=== PATIENT | female | born 1965 | race American Indian/Alaskan Native ===

== ENCOUNTER 2017-12-09 22:58 | Observation (INO) | payer BC ==
[2017-12-09 22:58] VITALS: BMI 36.6
--- NOTE | 2017-12-09 23:55 | ED PDOC ---
Arrival/HPI - General Chief Complaint: Syncope Time Seen by Provider: 12/09/17 23:44 Historian: Patient, Spouse - History of Present Illness Narrative History of Present Illness (Text): 12/09/17 23:49 Antonette Rodriguez is a 52 year old female, whose past medical history includes seizures, who presents to the Emergency department status post syncopal episode tonight. states patient passed out at home, states he found her on the floor unconscious. The patient regained consciousness at home, states she does not recall the incident, and was brought in via EMS. Patient denies any fever, chills, chest pain, shortness of breath, nausea, vomiting, diarrhea, urinary symptoms, back pain, neck pain, or any other complaints. Time/Duration: Prior to Arrival Symptom Onset: Sudden Symptom Course: Improving Activities at Onset: Light Context: Home Past Medical History - Provider Review Nursing Documentation Reviewed: Yes - Endocrine/Metabolic Hx Hypothyroidism: Yes - Psychiatric Hx Depression: No Hx Emotional Abuse: No Hx Physical Abuse: No Hx Substance Use: No - Surgical History Hx Hysterectomy: Yes - Suicidal Assessment Feels Threatened In Home Enviroment: No Family/Social History - Physician Review Nursing Documentation Reviewed: Yes Family/Social History: Unknown Family HX Smoking Status: Never Smoked Hx Alcohol Use: Yes Frequency of alcohol use: Socially Hx Substance Use: No Hx Substance Use Treatment: No Allergies/Home Meds Allergies/Adverse Reactions: Allergies No Known Allergies Allergy (Verified 12/09/17 23:12) Home Medications: Home Meds Medication Instructions Recorded Confirmed Meloxicam [Mobic] 7.5 mg PO DAILY 12/09/17 12/09/17 levETIRAcetam [Keppra] 500 mg PO DAILY 12/09/17 12/09/17 tiZANidine [Zanaflex] 4 mg PO HS 12/09/17 12/09/17 Review of Systems - Physician Review All systems were reviewed & negative as marked: Yes - Review of Systems Constitutional: Normal. absent: Fevers Eyes: Normal ENT: Normal Respiratory: Normal. absent: SOB, Cough Cardiovascular: Syncope. absent: Chest Pain Gastrointestinal: Normal. absent: Abdominal Pain, Nausea, Vomiting Genitourinary Female: Normal. absent: Dysuria, Frequency, Hematuria, Urine Output Changes Musculoskeletal: Normal. absent: Back Pain, Neck Pain Skin: Normal. absent: Rash Neurological: Headache, Dizziness Endocrine: Normal Hemo/Lymphatic: Normal Psychiatric: Normal Physical Exam Vital Signs Reviewed: Yes Vital Signs Temp Pulse Resp BP Pulse Ox 12/10/17 03:00 97.9 F 70 16 169/80 H 100 12/10/17 01:00 97.9 F 70 16 170/80 H 100 12/09/17 23:21 97.9 F 75 18 185/113 H 99 Temperature: Afebrile Blood Pressure: Normal Pulse: Regular Respiratory Rate: Normal Appearance: Positive for: Well-Appearing, Non-Toxic, Comfortable Pain Distress: None Mental Status: Positive for: Alert and Oriented X 3 - Systems Exam Head: Present: Atraumatic, Normocephalic Pupils: Present: PERRL Extroacular Muscles: Present: EOMI Conjunctiva: Present: Normal Mouth: Present: Moist Mucous Membranes Neck: Present: Normal Range of Motion Respiratory/Chest: Present: Clear to Auscultation, Good Air Exchange. No: Respiratory Distress, Accessory Muscle Use Cardiovascular: Present: Regular Rate and Rhythm, Normal S1, S2. No: Murmurs Abdomen: Present: Normal Bowel Sounds. No: Tenderness, Distention, Peritoneal Signs Back: Present: Normal Inspection Upper Extremity: Present: Normal Inspection. No: Cyanosis, Edema Lower Extremity: Present: Normal Inspection. No: Edema Neurological: Present: GCS=15, CN II-XII Intact, Speech Normal Skin: Present: Warm, Dry, Normal Color. No: Rashes Psychiatric: Present: Alert, Oriented x 3, Normal Insight, Normal Concentration Medical Decision Making ED Course and Treatment: 12/10/17 23:49 Impression: 52 year old female presents to the Emergency department s/p syncopal episode. ro intracranial, metaoblic, infectious, cardiac etiology Plan: -- EKG -- CT Head -- Labs -- Urinalysis -- Reassess and disposition Progress Notes: Reviewed EKG, NSR at [address]-segment elevations or depressions, no T-wave inversions, normal intervals. 12/10/17 01:54 Chest X-ray shows: Lungs: There is a diffuse increase in interstitial markings, which is nonspecific. Possible etiologies include interstitial edema and atypical infection. There is hazy opacification of the left lung, and infiltrate cannot be excluded. Pleural space: No pleural effusions. No pneumothorax. Heart: The cardiac silhouette appears enlarged. Mediastinum: Unremarkable. Bones/joints: No visualized acute osseous abnormality. IMPRESSION: 1. The cardiac silhouette appears enlarged. 2. There is a diffuse increase in interstitial markings, which is nonspecific. Possible etiologies include interstitial edema and atypical infection. 3. There is hazy opacification of the left lung, and infiltrate cannot be excluded. 4. Clinical correlation and follow-up radiographs are recommended. CT Head shows: Brain: There are small periventricular foci of hypodensity, suggestive of small vessel ischemic disease. Demyelination is within the differential. The acuity of the white matter disease is indeterminate. The white-singh differentiation is preserved demonstrating no acute territorial type infarct. There are calcifications within the globus pallidus bilaterally, which are likely physiologic. No acute intracranial hemorrhage is seen. Midline shift: There is no midline shift. Ventricles: A cavum septum pellucidum variant is visualized. No ventriculomegaly. Bones/joints: The calvarium demonstrates no evidence for a depressed fracture. Soft tissues: No acute abnormality. Vasculature: There is atherosclerotic calcification of the cavernous internal carotid arteries. Sinuses: Unremarkable as visualized. No acute sinusitis. Mastoid air cells: No mastoid effusion. Orbits: There is bilateral proptosis. IMPRESSION: 1. No acute intracranial hemorrhage or acute territorial type infarct. 2. There are small periventricular foci of hypodensity, suggestive of small vessel ischemic disease. Demyelination is within the differential. 3. Additional CT findings described above. 12/10/17 02:07 mild leukocytosis, cxr shows suspected infiltrate read by radiologist, will cover empirically. Case discussed with Dr. Da Silva, who is aware and agrees with plan. Accepts pt in to his service. Pt admitted to telemetry for syncope, pneumonia, and leukocytosis. Requests mesha Bear kapoor on consult. 12/10/17 05:45 - Lab Interpretations Microbiology Results: Microbiology Results 12/10/17 02:00 Blood Blood Culture - Preliminary NO GROWTH AFTER 24 HOURS Lab Results: 12/10/17 00:40 12/10/17 00:40 Lab Results 12/10/17 02:00: Influenza Typ A,B (EIA) Negative for flu a/b 12/10/17 00:40: Sodium 143, Potassium 3.6, Chloride 102, Carbon Dioxide 30, Anion Gap 14, BUN 11, Creatinine 0.9, Est GFR ( Amer) > 60, Est GFR (Non- Af Amer) > 60, Random Glucose 112 H, Calcium 10.2, Magnesium 2.1, Total Bilirubin 0.5, AST 31, ALT 26, Alkaline Phosphatase 112, Lactate Dehydrogenase 523, Total Creatine Kinase 323 H, CK-MB (CK-2) 2.7, CK-MB (CK-2) % Cancelled, Troponin I 0.06, Total Protein 7.4, Albumin 4.0, Globulin 3.4, Albumin/Globulin Ratio 1.2 12/10/17 00:40: PT 11.6, INR 1.02, APTT 30.2 12/10/17 00:40: WBC 12.9 H, RBC 4.49, Hgb 13.4, Hct 40.6, MCV 90.4, MCH 29.8, MCHC 33.0, RDW 13.6, Plt Count 263, MPV 11.7 H, Gran % 81.4 H, Lymph % (Auto) 12.9 L, [place] % (Auto) 4.1, Eos % (Auto) 1.4 L, Baso % (Auto) 0.2, Gran # 10.45 H , Lymph # (Auto) 1.7, [place] # (Auto) 0.5, Eos # (Auto) 0.2, Baso # (Auto) 0.03 I have reviewed the lab results: Yes - RAD Interpretation Radiology Orders: 12/09/17 23:47 CHEST PORTABLE [RAD] Stat 12/09/17 23:48 HEAD W/O CONTRAST [CT] Stat School Principal: Radiologist - EKG Interpretation Interpreted by ED Physician: Yes Type: 12 lead EKG - Medication Orders Current Medication Orders: Amlodipine Besylate (Norvasc) 2.5 mg PO DAILY [facility] Last Admin: 12/10/17 18:59 Dose: 2.5 mg MAR Blood Pressure Document 12/10/17 18:59 DC (Rec: 12/10/17 18:59 DC [id number]) Blood Pressure Blood Pressure (100/60-150/90) 164/104 Aspirin (Ecotrin) 81 mg PO DAILY [facility] Last Admin: 12/10/17 10:36 Dose: 81 mg Levetiracetam (Keppra) 500 mg PO DAILY [facility] Last Admin: 12/10/17 10:21 Dose: 500 mg Discontinued Medications Levofloxacin/Dextrose (Levaquin 750mg) 750 mg in 150 mls @ 100 mls/hr IVPB STAT STA PRN Reason: Protocol Stop: 12/10/17 03:29 Last Admin: 12/10/17 02:52 Dose: 100 mls/hr eMAR Start Stop Document 12/10/17 02:52 AB (Rec: 12/10/17 02:53 AB [id number]) Intravenous Solution Start Date 12/10/17 Start Time 02:52 End Date 12/10/17 End time 04:22 Total Infusion Time 90 - Scribe Statement The provider has reviewed the documentation as recorded by the Chandni Joyce training under Kiara Cosme All medical record entries made by the Chandni were at my direction and personally dictated by me. I have reviewed the chart and agree that the record accurately reflects my personal performance of the history, physical exam, medical decision making, and the department course for this patient. I have also personally directed, reviewed, and agree with the discharge instructions and disposition. Disposition/Present on Arrival - Present on Arrival Any Indicators Present on Arrival: No History of DVT/PE: No History of Uncontrolled Diabetes: No Urinary Catheter: No History of Decub. Ulcer: No History Surgical Site Infection Following: None - Disposition Have Diagnosis and Disposition been Completed?: Yes Diagnosis: Syncope, Pneumonia Disposition: HOSPITALIZED Disposition Time: 04:00 Patient Problems: Current Active Problems Problem Status Onset Pneumonia Acute Syncope Acute Condition: STABLE
[2017-12-10 01:16] LABS: BASO # 0.03 K/mm3 (0.0-2.0); BASO % 0.2 % (0.0-3.0); EOS # 0.2 (0.0-0.7); EOS % 1.4 % (1.5-5.0); GRAN # 10.45 (1.4-6.5); GRAN % 81.4 % (50.0-68.0); HEMOGLOBIN 13.4 g/dL (12.0-16.0); LYMPH # 1.7 (1.2-3.4); LYMPH % 12.9 % (22.0-35.0); MEAN CELL VOLUME 90.4 fl (80.0-105.0); MEAN CORPUSCULAR HEMOGLOBIN 29.8 pg (25.0-35.0); MEAN PLATELET VOLUME 11.7 fl (7.0-11.0); MONO # 0.5 (0.1-0.6); MONO % 4.1 % (1.0-6.0); RBC 4.49 10^6/uL (3.5-6.1); RED CELL DISTRIBUTION WIDTH 13.6 % (11.5-14.5); WHITE BLOOD COUNT 12.9 10^3/ul (4.5-11.0)
[2017-12-10 01:23] LABS: ALB/GLOB RATIO 1.2 (1.1-1.8); ALT/SGPT 26 U/L (7-56); AST/SGOT 31 U/L (14-36); BLOOD UREA NITROGEN 11 mg/dL (7-21); CALCIUM 10.2 mg/dL (8.4-10.5); GFR AFRICAN-AMERICAN > 60; GFR NON-AFRICAN AMERICAN > 60; MAGNESIUM 2.1 mg/dL (1.7-2.2)
[2017-12-10 01:29] LABS: PROTHROMBIN TIME 11.6 SECONDS (9.4-12.5)
[2017-12-10 01:30] LABS: INR 1.02 (0.93-1.08); PARTIAL THROMBOPLASTIN TIME 30.2 Seconds (25.1-36.5)
[2017-12-10 01:33] LABS: TROPONIN I 0.06 ng/mL
[2017-12-10 01:45] LABS: CK-MB 2.7 ng/mL (0.0-3.6)
--- NOTE | 2017-12-10 01:52 | CT ---
EXAM: CT Head Without Intravenous Contrast EXAM DATE/TIME: 12/09/2017 11:48 PM CLINICAL HISTORY: The patient age is 52 years old and is female; Signs and symptoms; Syncope and collapse Facility exam id and description: Ct heads head w/o contrast TECHNIQUE: Axial computed tomography images of the head/brain without intravenous contrast. All CT scans at this facility use one or more dose reduction techniques, viz.: automated exposure control; ma/kV adjustment per patient size (including targeted exams where dose is matched to indication; i.e. head); or iterative reconstruction technique. Coronal and sagittal reformatted images were created and reviewed. COMPARISON: No relevant prior studies available. FINDINGS: Brain: There are small periventricular foci of hypodensity, suggestive of small vessel ischemic disease. Demyelination is within the differential. The acuity of the white matter disease is indeterminate. The white-singh differentiation is preserved demonstrating no acute territorial type infarct. There are calcifications within the globus pallidus bilaterally, which are likely physiologic. No acute intracranial hemorrhage is seen. Midline shift: There is no midline shift. Ventricles: A cavum septum pellucidum variant is visualized. No ventriculomegaly. Bones/joints: The calvarium demonstrates no evidence for a depressed fracture. Soft tissues: No acute abnormality. Vasculature: There is atherosclerotic calcification of the cavernous internal carotid arteries. Sinuses: Unremarkable as visualized. No acute sinusitis. Mastoid air cells: No mastoid effusion. Orbits: There is bilateral proptosis. IMPRESSION: 1. No acute intracranial hemorrhage or acute territorial type infarct. 2. There are small periventricular foci of hypodensity, suggestive of small vessel ischemic disease. Demyelination is within the differential. 3. Additional CT findings described above.
--- NOTE | 2017-12-10 01:57 | RAD ---
EXAM: XR Chest, 1 View EXAM DATE/TIME: 12/09/2017 11:47 PM CLINICAL HISTORY: The patient age is 52 years old and is female; Signs and symptoms; Shortness of breath; Additional info: Syncope Facility exam id and description: Rad chest p chest portable TECHNIQUE: Frontal view of the chest. COMPARISON: No relevant prior studies available. FINDINGS: Lungs: There is a diffuse increase in interstitial markings, which is nonspecific. Possible etiologies include interstitial edema and atypical infection. There is hazy opacification of the left lung, and infiltrate cannot be excluded. Pleural space: No pleural effusions. No pneumothorax. Heart: The cardiac silhouette appears enlarged. Mediastinum: Unremarkable. Bones/joints: No visualized acute osseous abnormality. IMPRESSION: 1. The cardiac silhouette appears enlarged. 2. There is a diffuse increase in interstitial markings, which is nonspecific. Possible etiologies include interstitial edema and atypical infection. 3. There is hazy opacification of the left lung, and infiltrate cannot be excluded. 4. Clinical correlation and follow-up radiographs are recommended.
[2017-12-10] MEDS ORDERED: levoFLOXacin 750 mg in D5W 750 MG/150 ML BAG IVPB STA (02:00)
--- NOTE | 2017-12-10 09:00 | CP.PCM.CON ---
<Theresa Strickland - Last Filed: 12/10/17 14:39> History of Present Illness - History of Present Illness History of Present Illness: Consult: Syncope vs seizure Ms Antonette Rodriguez, 52 F, with PMHx seizure on Keprra 500 daily, was brought into the Emergency department status post loss of consciousness last night. Pt dined out at a restaurant early the night. Later, pt was folding clothes at home. Pt's heard a thud, and found pt faced down on the floor, with foam in her mouth and on her clothes. noticed that pt was breathing heavily, without any twitching or shaking. noticed that pt was confused when she became more awake. In 15-20 minutes, EMS came and pt is able to provide her name correctly. Pt states she does not recall the incident. ROS - (+) pt slept only 2-4 hours everynight. Pt was awaken when woke up at 4am and hard to fall back asleep Denies recent sickness, change of medication, skipped medication. Denies any fever, chills, chest pain, shortness of breath, nausea, vomiting, diarrhea, urinary symptoms, back pain, neck pain, or any other complaints. In ED, BP 185/113. WBC 12.9. CK [address]: chronic small periventrical foci of hypodensity due to small vessel ischemic disease. No acute territorial type infarct. Calcification of globus pallidus b/1. (+) b/l proptosis of eye orbits PMH: Seizure. Dx 2016 Hyperthyroidism PSH: FH: Cancer SH: Never smoke. Socally drink alcohol. no drugs. Family/Relative deaths every year in the past 3-4 years. All: NKDA Med: Mobid 7.5 daily, Tizanidine 4 HS ? Keppra 500 daily Outpt neurologist: Dr Charis Stokes Past Patient History - Past Social History Smoking Status: Never Smoked - NEUROLOGICAL Hx Seizures: Yes - ENDOCRINE/METABOLIC Hx Hypothyroidism: Yes - MUSCULOSKELETAL/RHEUMATOLOGICAL Hx Falls: Yes (Syncopal episode 12/09/17) - PSYCHIATRIC Hx Depression: No Hx Emotional Abuse: No Hx Physical Abuse: No - SURGICAL HISTORY Hx Hysterectomy: Yes Meds Allergies/Adverse Reactions: Allergies Allergy/AdvReac Type Severity Reaction Status Date / Time No Known Allergies Allergy Verified 12/09/17 23:12 - Medications Medications: Current Medications Levetiracetam (Keppra) 500 mg PO DAILY SADIE Physical Exam - Constitutional Appears: No Acute Distress - Head Exam Head Exam: ATRAUMATIC, NORMAL INSPECTION, NORMOCEPHALIC - Eye Exam Eye Exam: EOMI, Normal appearance, PERRL. absent: Scleral icterus Pupil Exam: NORMAL ACCOMODATION - ENT Exam ENT Exam: Mucous Membranes Moist - Neck Exam Additional comments: supple - Respiratory Exam Respiratory Exam: Clear to Auscultation Bilateral, NORMAL BREATHING PATTERN - Cardiovascular Exam Cardiovascular Exam: REGULAR RHYTHM - GI/Abdominal Exam GI & Abdominal Exam: Normal Bowel Sounds, Soft. absent: Tenderness - Neurological Exam Neurological exam: Alert, CN II-XII Intact, Oriented x3 Additional comments: speech: no aphasia motor: move all extremities equally sensory: intact coordination: intact, no overshoot rapid-alternating movement: intact Results - Vital Signs Recent Vital Signs: Last Vital Signs Temp 97.9 F 12/10/17 06:00 Pulse 74 12/10/17 06:00 Resp 19 12/10/17 06:00 BP 141/74 12/10/17 06:00 Pulse Ox 98 12/10/17 06:00 - Labs Result Diagrams: 12/10/17 00:40 12/10/17 00:40 Assessment & Plan - Assessment and Plan (Free Text) Plan: Ms Antonette Rodriguez, 52 AA F, with PMHx seizure on Keprra 500 daily, was brought into the Emergency department after found loss of consciousness at home. Pt dined out at a restaurant early the night. As home, pt's heard a thud, and found pt faced down on the floor, with foam in her mouth and on her clothes. Pt states she does not recall the incident. ROS is significant for sleep deprivation. Denies recent sickness, change of medication, skipped medication. CK is elevated at 323. Syncope likely vasovagal secondary to sleep deprivation, mildly dehydration, and hypertensive episode R/O seizure - EEG, - Orthostatic VS - Carotid doppler - MRI - ASA 81 to promote blood flow to brain - If EEG is normal, pt is neurologically cleared to go home. - Melatonin 10 mg HS - Educated about sleep hygiene Head CT: chronic small periventrical foci of hypodensity due to small vessel ischemic disease. No acute territorial type infarct. Calcification of globus pallidus b/1. (+) b/l proptosis of eye orbits s/r/d/w Dr. Stokes <Tucker Stokes - Last Filed: 12/10/17 16:15> Meds - Medications Medications: Current Medications Aspirin (Ecotrin) 81 mg PO DAILY [facility]IE Levetiracetam (Keppra) 500 mg PO DAILY [facility] Last Admin: 12/10/17 10:21 Dose: 500 mg Results - Vital Signs Recent Vital Signs: Last Vital Signs Temp 97.9 F 12/10/17 06:00 Pulse 74 12/10/17 06:00 Resp 19 12/10/17 06:00 BP 141/74 12/10/17 06:00 Pulse Ox 98 12/10/17 06:00 - Labs Result Diagrams: 12/10/17 00:40 12/10/17 00:40
--- NOTE | 2017-12-10 09:39 | RAD ---
HISTORY: follow up COMPARISON: 12/10/2017 TECHNIQUE: Chest PA and lateral FINDINGS: LUNGS: No active pulmonary disease. PLEURA: No significant pleural effusion identified. No pneumothorax apparent. CARDIOVASCULAR: Normal. OSSEOUS STRUCTURES: No significant abnormalities. VISUALIZED UPPER ABDOMEN: Normal. OTHER FINDINGS: None. IMPRESSION: No active disease.
--- NOTE | 2017-12-10 10:56 | CON ---
DATE: 12/10/2017 PULMONARY CONSULTATION REASON FOR CONSULTATION: Possible pneumonia. REFERRING PHYSICIAN: Ángel Da Silva DO History is obtained via extensive discussion with the night nurse. I have also reviewed the chart at length, and discussed the case with the patient at length. HISTORY OF PRESENT ILLNESS: The patient is a 52-year-old female, with past medical history significant for seizure disorder, hypertension, who presents to [facility] after a syncopal episode at home. Again, I did discuss the case with the patient at length. The patient stated that she was doing some housework in her living room. The next thing she remembers is being found on the floor. Apparently, the found the patient and called emergency medical services. The patient was then transported to [facility] for additional evaluation and treatment. Again, I did discuss the case with the night nurse and the patient at length. There is no history of shortness of breath at rest, dyspnea on exertion, cough, or sputum production. There is no history of chest pain, coughing up of blood, or chest pain - made worse with deep respirations. There is no history of temperatures, chills or infectious exposure. There is no history of night sweats, weight loss or appetite change prior to the above events. No history of calf pains. No history of diaphoresis. No history of recent travel. REVIEW OF SYSTEMS: No history of nausea, vomiting or diarrhea. No acute urinary symptoms. No new musculoskeletal complaints. Rest of the review of systems is negative. ALLERGIES: NO KNOWN ALLERGIES. SOCIAL HISTORY: Negative tobacco and negative alcohol. FAMILY HISTORY: No inheritable diseases. HOME MEDICATIONS: Include Mobic, Zanaflex and Keppra. PHYSICAL EXAMINATION GENERAL: The patient is awake and alert, comfortable. She is not short of breath at rest. VITAL SIGNS: Temperature is 97.9, pulse is 70, respirations 16, blood pressure 169/80. Oxygen saturation on room air is 100%. HEENT: Normocephalic, atraumatic. No JVD. CARDIOVASCULAR: Positive S1, S2. No S3 gallop. LUNGS: Clear bilaterally. EXTREMITIES: No clubbing, cyanosis or edema. Calves are nontender to palpation. GI: Abdomen is soft, nontender and nondistended. Bowel sounds are positive. SKIN: No acute rash. NEUROLOGIC: Limited at the present time. PERTINENT LABORATORY DATA: Chest x-ray was done late last night and reviewed. It is a poor semi-erect portable film. There appears to be mild haziness in both lung luis, but this may be technical in nature. CBC: White count 12.9, hemoglobin 13.4, hematocrit 40.6, platelets of 263,000. Complete metabolic profile: Glucose 112, creatinine kinase 323. Rest of the metabolic profiles within normal limits. IMPRESSION: 1. Syncope. 2. Seizure disorder. 3. Mild leukocytosis. 4. Rule out aspiration. 5. Hypertension. PLAN: Again, I did discuss the case with the patient and night nurse at length. Apparently, the patient was found by her - after a syncopal episode at home. The last thing the patient remembers is doing some housework in her living room. After the found the patient, he quickly called emergency medical services,and the patient was transported to [facility] for additional evaluation. Consultation with Dr. Stokes (Neurology) has been ordered. At this point in time, there are no pulmonary symptoms offered by the patient or nurse. I did review the chest x-ray as above. The chest x-ray is a poor semi-erect portable film. It does show some haziness in both lung luis, but this may be technical in nature. I will order a repeat chest x-ray - PA and lateral - for closer evaluation. On physical exam, the patient's lungs are clear. Oxygen saturation on room air is 100%. I have also reviewed the laboratory data. There is a mild leukocytosis noted. This leukocytosis may very well be due to the seizure. Cardiology evaluation with Dr. Santos has also been ordered. The patient appears clinically, much improved this morning. Additional pulmonary intervention will be based on the above results, as well as the clinical status of the patient. I will discuss the above with Dr. Da Silva. Thank you very much for this pulmonary consultation. Guzman Booth MD JOSE ANGEL
[2017-12-10] MEDS ORDERED: Gadodiamide 287 MG/ML VIAL (15ML) IV ONE (15:34)
--- NOTE | 2017-12-10 16:10 | CARD ---
APPROVED REPORT EKG Measurement Heart [id number] <Conclusion> Normal sinus rhythm Possible Left atrial enlargement Septal infarct, age undetermined Abnormal ECG
--- NOTE | 2017-12-10 17:25 | HP ---
HISTORY OF PRESENT ILLNESS: I saw her in the hospital bed. She comes in with the 's history of stating that she passed out at home, was found on the floor unconscious. She regained consciousness at home. Does not recall anything. She was brought in by EMS to the emergency room. She tells me that she stopped her seizure medication a few days ago, but she does not think she has seizures anymore and it is very possible she had a seizure. She is not short of breath. No chest pain. No chills, nausea, vomiting, diarrhea. She is comfortable in bed. She is a 52-year-old female, who was found by the at home passed out and unconscious and called 911. She has a history of seizures, hypothyroidism. She had a hysterectomy. FAMILY HISTORY: Unknown family history. SOCIAL HISTORY: She never smoked. She drinks alcohol socially. No substance abuse. ALLERGIES: NO KNOWN DRUG ALLERGIES. MEDICATIONS: She is on Mobic, Keppra, Zanaflex. I have medicine for hypothyroidism. I will check a TSH. REVIEW OF SYSTEMS: At this time, she does not recall the incident. No acute headache or vision changes or hearing changes. No sore throat. No neck pain. No chest pain or palpitations. NO shortness of breath or cough. No nausea, vomiting, constipation, diarrhea. No problems urinating. No back pain or neck pain or arm pain. There is a little bit of a headache, a little bit dizzy. No sweating or anxiety. PHYSICAL EXAMINATION: VITAL SIGNS: 97.9 temp, 70 pulse, 16 respiratory rate, 170/80 blood pressure, the blood pressure is a little bit high and 100% O2 sat on room air. She did not give me any history of hypertensive issues and the blood pressure was 185/113 when she first came in. HEENT: Head is atraumatic, normocephalic. She is well appearing, nontoxic, comfortable right now very upset that she had a seizure possibly or passed out when she was off the medicine for only a couple of days. Alert and oriented x3. Extraocular muscles are intact. Pupils equal, reactive to light and accommodation. Throat is moist. NECK: Supple. HEART: Regular rate. Normal S1, S2. LUNGS: Clear to auscultation bilaterally. No wheezes. No rhonchi. No rales. ABDOMEN: Soft, nontender. Positive bowel sounds. No guarding, no rebound. No CVA tenderness. EXTREMITIES: Have no edema. NEUROLOGIC: GCS is 15. Cranial nerves II through XII grossly intact. Speech is normal. Tongue is midline. SKIN: Warm and dry. No apparent rashes or ulcers. Alert and oriented x3. LYMPH NODES: Thyroid midline. No palpable appreciable lymphadenopathy. LABORATORY DATA: She had a bunch of tests done in the ER. The flu is negative. 143 sodium, potassium 3.6, BUN 11, creatinine 0.9, GFR is greater than 60, sugar is 112, calcium is 10.2, magnesium 2.1, total bili is 0.5, AST is 31, ALT is 26, alk phos 112, lactate dehydrogenase is 523. Troponin I is indeterminate 0.06. Total protein 7.4, albumin is 4, globulin 3.4. INR is 1.03. The white count was a little bit elevated at 12.9, may be that was from stress, 13.4 hemoglobin, 40.6 hematocrit and 263 platelets. She did have a head CT and a chest x-ray. Head CT with no intracranial hemorrhage or acute infarct and the chest x-ray showed cardiac silhouette appears large. There is diffuse increased interstitial markings, nonspecific. Hazy opacification of the left lung and infiltrate cannot be excluded. IMPRESSION: I discussed with the lung doctors, repeating a chest x-ray, a better film to see if she might have pneumonia or not. She is here for seizure. We will Neurology involved. Her brother blood pressure is a little bit borderline and the troponin is indeterminate. I will get Cardiology and for the lung issue from the chest x-ray, I will get Pulmonary. She will be here. Hopefully, I will put her back on the Keppra and she will do well. She is here for unwitnessed unresponsiveness, possible seizure, possible pneumonia, syncope and hypertension. Ángel Da Silva DO
[2017-12-10 17:51] VITALS: RESP 20
--- NOTE | 2017-12-10 19:07 | MRI ---
PROCEDURE: MRI BRAIN WITH AND WITHOUT CONTRAST HISTORY: syncope COMPARISON: None. TECHNIQUE: Multiplanar, multisequence MR images of the brain were obtained with and without intravenous contrast enhancement. 15 cc of Omniscan was injected intravenously. FINDINGS: HEMORRHAGE: None DWI: No evidence of an acute or early subacute infarction. BRAIN PARENCHYMA: No mass,mass effect or edema. The sella turcica is dilated. Partial empty sella is noted. No evidence of pituitary or suprasellar mass lesion. No atrophy or chronic microvascular ischemic changes. ENHANCEMENT: No abnormal intracranial enhancement. VENTRICLES: Unremarkable. No hydrocephalus. CRANIUM: Unremarkable. ORBITS: Grossly unremarkable. PARANASAL SINUSES/MASTOIDS: Clear VASCULAR SYSTEM: Skull base flow voids intact. OTHER FINDINGS: None . IMPRESSION: No evidence of acute infarction intracranial hemorrhage mass lesion mass effect or midline shift. Partial empty sella.
--- NOTE | 2017-12-10 19:08 | US ---
PROCEDURE: Bilateral carotid artery duplex ultrasound HISTORY: Carotid stenosis syncope. PHYSICIAN(S): Cash Johnson MD. TECHNIQUE: Duplex sonography and color-flow Doppler were used to evaluate the carotid bifurcations and limited segments of the vertebral arteries bilaterally. The exam is somewhat limited by tortuous vessels. FINDINGS: There is mild smooth heterogeneous plaque noted at the carotid bifurcations bilaterally. The peak systolic velocity in the proximal right internal carotid artery is 121 cm/sec. This corresponds to a 40-59 percent proximal right ICA stenosis. This may be due to vessel tortuosity Normal systolic velocities are noted in the proximal right external carotid artery. There is antegrade flow in the right vertebral artery. The peak systolic velocity in the proximal left internal carotid artery is 97 cm/sec. This corresponds to a 20 to 39% proximal left ICA stenosis. Normal systolic velocities are noted in the proximal left external carotid artery. There is antegrade flow in the dominant left vertebral artery. IMPRESSION: 1. 40-59 percent proximal right ICA stenosis. 2. 20-39 percent proximal left ICA stenosis. 3. Antegrade flow in both vertebral arteries.
--- NOTE | 2017-12-10 22:55 | CON ---
DATE: 12/10/2017 CARDIOLOGY CONSULTATION HISTORY OF PRESENT ILLNESS: The patient is a 52-year-old woman who presents with a syncopal episode. She apparently had an episode of a possible seizure where she was found unconscious. She does have a history of seizure disorder in which she stopped her medications for the past several weeks. She denies chest pain, denies shortness of breath. PAST MEDICAL HISTORY: Also notable for hypertension. She is also a borderline diabetic. No chest pain. No previous cardiac history is noted. SOCIAL HISTORY: Denies smoking. REVIEW OF SYSTEMS: Fourteen-point review of systems was reviewed in detail. No cardiac symptomatology is noted. PHYSICAL EXAMINATION: VITAL SIGNS: Blood pressure 141/74, heart rates in the 70s. NECK: Negative JVD. LUNGS: Without rales. HEART: Reveals S1, S2. EXTREMITIES: Without edema. LABORATORY DATA: Include a troponin of 0.06, hemoglobin is 13.4, white count is 12.9. EKG shows no acute changes. IMPRESSION: 1. Seizure disorder. 2. Syncope. 3. Hypertension. 4. Borderline diabetes mellitus. 5. Indeterminate troponin elevation. PLAN: Given these findings, we will repeat another troponin. We will obtain an echocardiogram to evaluate LV function. Cash Santos MD
[2017-12-11 01:36] VITALS: O2SAT 96
[2017-12-11 06:37] VITALS: PULSE 94; TEMP 98.1
[2017-12-11 06:55] LABS: TROPONIN I 0.04 ng/mL
[2017-12-11 07:06] LABS: HEMOGLOBIN 12.7 g/dL (12.0-16.0); MEAN CELL VOLUME 92.1 fl (80.0-105.0); MEAN CORPUSCULAR HEMOGLOBIN 29.7 pg (25.0-35.0); MEAN CORPUSCULAR HGB CONC 32.2 g/dl (31.0-37.0); MEAN PLATELET VOLUME 11.3 fl (7.0-11.0); RBC 4.28 10^6/uL (3.5-6.1); RED CELL DISTRIBUTION WIDTH 13.6 % (11.5-14.5); WHITE BLOOD COUNT 8.4 10^3/ul (4.5-11.0)
[2017-12-11 07:09] LABS: ALB/GLOB RATIO 1.1 (1.1-1.8); ALBUMIN 3.4 g/dL (3.0-4.8); ALT/SGPT 30 U/L (7-56); AST/SGOT 25 U/L (14-36); BLOOD UREA NITROGEN 13 mg/dL (7-21); GFR AFRICAN-AMERICAN > 60; GFR NON-AFRICAN AMERICAN 52
--- NOTE | 2017-12-11 08:47 | PN ---
DATE: 12/11/2017 PULMONARY NOTE SUBJECTIVE: The patient appears very comfortable this morning. She is not short of breath at rest. PHYSICAL EXAMINATION VITAL SIGNS: Temperature is 98.1, pulse is 60, respirations 18/20, blood pressure 140/80. Oxygen saturation on room air is 96%. HEENT: Normocephalic, atraumatic. No JVD. CARDIOVASCULAR: Positive S1, S2. No S3 gallop. LUNGS: Clear bilaterally. EXTREMITIES: No clubbing, cyanosis or edema. Calves are nontender to palpation. GI: Abdomen is soft, nontender and nondistended. Bowel sounds are positive. SKIN: No acute rash. NEUROLOGIC: Limited at the present time. PERTINENT LABORATORY DATA: Chest x-ray was repeated yesterday as a PA and lateral exam. There is no active pulmonary disease noted. IMPRESSION: 1. Syncope. 2. Seizure disorder. 3. Mild leukocytosis. 4. Rule out aspiration. 5. Hypertension. PLAN: The patient appears very comfortable this morning. She is not short of breath at rest. She offers no pulmonary complaints. She does state to feeling much better overall. I did review the repeat chest x-ray from yesterday. There is no active pulmonary disease noted. Repeat a.m. labs are pending. Echocardiogram is also pending. I would continue with the cardiology and neurologic evaluations. Inputs are noted. Clinical status of the patient appears significantly improved overall. There is no additional pulmonary intervention which is needed or warranted. Thus, I will follow up on this case again as requested. Thank you very much for allowing me to participate in the care of this patient. I will discuss the above with Dr. Da Silva. Guzman Booth MD JOSE ANGEL
--- NOTE | 2017-12-11 10:09 | CP.PCM.PN ---
<Theresa Strickland - Last Filed: 12/11/17 10:01> Subjective - Date & Time of Evaluation Date of Evaluation: 12/11/17 Time of Evaluation: 10:01 - Subjective Subjective: Neurology PGY-[address] Divya Ingram BREWER, SOB, dizziness, CP, SOB, dysuria, weakness of arms/legs. Objective - Vital Signs/Intake and Output Vital Signs (last 24 hours): Temp Pulse Resp BP Pulse Ox 98.1 F 94 H 20 140/80 96 12/11/17 06:00 12/11/17 06:00 12/11/17 06:00 12/11/17 06:37 12/11/17 06:00 Intake and Output: 12/11/17 12/11/17 06:59 18:59 Intake Total 480 250 Balance 480 250 - Medications Medications: Current Medications Amlodipine Besylate (Norvasc) 2.5 mg PO DAILY [facility] Last Admin: 12/10/17 18:59 Dose: 2.5 mg Aspirin (Ecotrin) 81 mg PO DAILY [facility] Last Admin: 12/10/17 10:36 Dose: 81 mg Levetiracetam (Keppra) 500 mg PO DAILY [facility] Last Admin: 12/10/17 10:21 Dose: 500 mg - Labs Labs: 12/11/17 05:30 12/11/17 05:30 PT 11.6 SECONDS (9.4-12.5) 12/10/17 00:40 INR 1.02 (0.93-1.08) 12/10/17 00:40 APTT 30.2 Seconds (25.1-36.5) 12/10/17 00:40 - Constitutional Appears: No Acute Distress - Head Exam Head Exam: ATRAUMATIC, NORMAL INSPECTION, NORMOCEPHALIC - Eye Exam Eye Exam: EOMI, Normal appearance, PERRL. absent: Scleral icterus Pupil Exam: NORMAL ACCOMODATION - ENT Exam ENT Exam: Mucous Membranes Moist - Neck Exam Additional comments: supple - Respiratory Exam Respiratory Exam: Clear to Ausculation Bilateral, NORMAL BREATHING PATTERN. absent: Rales, Rhonchi, Wheezes - Cardiovascular Exam Cardiovascular Exam: REGULAR RHYTHM, +S1, +S2. absent: Murmur - Neurological Exam Neurological Exam: Alert, Awake, CN II-XII Intact, Oriented x3 Additional comments: speech: no aphasia motor: move all extremities equally sensory: intact coordination: intact, no overshoot rapid-alternating movement: intact Assessment and Plan - Assessment and Plan (Free Text) Plan: Ms Antonette Rodriguez, 52 AA F, with PMHx seizure on Keprra 500 daily, was brought into the Emergency department after found loss of consciousness at home. Pt dined out at a restaurant early the night. As home, pt's heard a thud, and found pt faced down on the floor, with foam in her mouth and on her clothes. Pt states she does not recall the incident. ROS is significant for sleep deprivation. Pt skipped 1 dose of Keppra in AM. Denies recent sickness, change of medication. CK is elevated at 323 likely due to muscle injury from impact of the fall. Telemetry showed sinus bradycardia in 40s and 50s at night. Syncope likely vasovagal secondary to orthostatic hypotension, sleep deprivation , mildly dehydration, and hypertensive episode in the setting of bradycardia R/O seizure - EEG: Normal - Carotid doppler - MRI brain: (+) Sella turcica is dilated, partially empty. No acute - Head CT: chronic small periventrical foci of hypodensity due to small vessel ischemic disease. No acute territorial type infarct. Calcification of globus pallidus b/1. (+) b/l proptosis of eye orbits - ASA 81 to promote blood flow to brain - If EEG is normal, pt is neurologically cleared to go home. - Melatonin 10 mg HS - Educated about sleep hygiene - Pt is neurologically stable to be discharged from hospital - follow up with neurologist outpatient within 1 week - maintain blood glucose 140-180 - maintain SBP 120-130 Patient has orthostatic hypotension - maintain adequate hydration througout the day - compression stockings - avoid sudden movement. Change position slowly Sella turcica dilated and partially empty. No pituitary mass/suprasella mass Questionable Pseudotumor cerebri - obesity, but no waddling gait, no personality changes Doubt Empty sella syndrome - SBP ~140-150 - TSH normal s/r/d/w Dr. Stokes <Tucker Stokes - Last Filed: 12/11/17 10:30> Objective - Vital Signs/Intake and Output Vital Signs (last 24 hours): Temp Pulse Resp BP Pulse Ox 98.1 F 94 H 20 137/80 96 12/11/17 06:00 12/11/17 06:00 12/11/17 06:00 12/11/17 10:16 12/11/17 06:00 Intake and Output: 12/11/17 12/11/17 06:59 18:59 Intake Total 480 250 Balance 480 250 - Medications Medications: Current Medications Amlodipine Besylate (Norvasc) 2.5 mg PO DAILY [facility] Last Admin: 12/11/17 10:16 Dose: 2.5 mg Aspirin (Ecotrin) 81 mg PO DAILY [facility] Last Admin: 12/11/17 10:16 Dose: 81 mg Levetiracetam (Keppra) 500 mg PO DAILY [facility] Last Admin: 12/11/17 10:16 Dose: 500 mg - Labs Labs: 12/11/17 05:30 12/11/17 05:30 PT 11.6 SECONDS (9.4-12.5) 12/10/17 00:40 INR 1.02 (0.93-1.08) 12/10/17 00:40 APTT 30.2 Seconds (25.1-36.5) 12/10/17 00:40 Attending/Attestation - Attestation I have personally seen and examined this patient.: Yes I have fully participated in the care of the patient.: Yes I have reviewed all pertinent clinical information, including history, physical exam and plan: Yes
[2017-12-11 10:17] VITALS: BP 137/80
--- NOTE | 2017-12-11 12:18 | EEG ---
DATE: 12/10/2017 Technical Information: Electrodes were placed according to the 10-20 International electrode system by special procedure technologist. Total of 23 electrodes (21 EEG and 2 EKG) were placed. EEG activity was digitally recorded referentially to P1/P2 or A1/A2 electrodes. Continuous monitoring with EEG was performed using digital analysis for spike detection. The [employer] spike and seizure detection algorithms were used for digital EEG analysis throughout the monitoring period to screen the EEG in real-time and hortencia the data file with pointers to electrographic seizures and interictal discharges. EEG was screened for electrographic seizures and interictal discharges by a technologist. Physician, epileptologist reviewed detections as well as extensive random samples and whole EEG study in detail. Digital EEG Analysis: Was carried out including FFT (Fast Fourier Transform), R2D2 (Rhythmicity Run Detection and Display), Relative Asymmetry Spectrogram, and voltage plot by the [employer]. The Qualitative EEG analysis and the voltage plot mapping were used for detection of foci of paroxysmal and abnormal electrical cortical activity. General Description: Background Rhythm: There is a well-formed, 8-10 Hz posterior dominant rhythm that is reactive, symmetric, and attenuates with eye opening. There was a normal amount of frontal beta noted bilaterally. There is no sleep recorded. Normal sleep patterns were captured, including bilaterally symmetric 12-14 Hz spindles, vertex waves, and K complexes. Activation Procedures: Photic stimulation: There is no driving noted. Hyperventilation: There is slowing noted that is self-remitted. Abnormal Activity: There are no focal epileptiform discharges noted. No clinical or subclinical seizures noted. IMPRESSION: This is a normal awake and sleep EEG. No clinical or subclinical seizures were noted. There is increased theta present throughout the record and this is due to medication effect. Clinical correlation is required. Gianni Dias MD
--- NOTE | 2017-12-11 12:38 | PN ---
DATE: 12/11/2017 CARDIOLOGY FOLLOWUP SUBJECTIVE: The patient is chest pain free. She is without shortness of breath. PHYSICAL EXAMINATION VITAL SIGNS: Blood pressure is 137/80, heart rate is in the 70s. NECK: Negative JVD. LUNGS: Without rales. HEART: S1, S2. EXTREMITIES: Without edema. LABORATORY DATA AND IMAGING: Troponin is down from 0.06 to 0.04. BUN and creatinine unremarkable. Hemoglobin is 12. Echocardiogram reveals good LV function with no significant LV outflow obstruction. IMPRESSION 1. Syncope. 2. Seizure disorder. 3. Hypertension. 4. Borderline diabetes mellitus. 5. Decreasing indeterminate troponin level. Given her cardiac risk factors, I have discussed with the patient and family about ruling out coronary artery disease. Various diagnostic testings have been discussed in detail. They are agreeable to proceed with a stress test, which can be done early next week as an outpatient. Cash Santos MD
--- NOTE | 2017-12-11 17:39 | CARD ---
APPROVED REPORT EXAM: Two-dimensional and M-mode echocardiogram with Doppler and color Doppler. INDICATION Syncope 2D DIMENSIONS Left Atrium (2D)4.2 (1.6-4.0cm)IVSd1.4 (0.7-1.1cm) LVDd4.7 (3.9-5.9cm)PWd1.4 (0.7-1.1cm) LVDs3.5 (2.5-4.0cm)FS (%) 26.0 % LVEF (%)50.9 (>50%) M-Mode DIMENSIONS Aortic Root2.20 (2.2-3.7cm)Aortic Cusp Exc.1.60 (1.5-2.0cm) Aortic Valve AoV Peak Cwwnjosg102.0cm/[place] Peak GR.13mmHg Mitral Valve MV E Uslpubma65.2cm/sMV A Maulhytz16.9cm/sE/A ratio0.7 TDI E/Lateral E'0.0E/Medial E'0.0 Tricuspid Valve TR Peak Rimituzs222nk/sRAP [id number] Peak Gr.29mmHg [id number] LEFT VENTRICLE The left ventricle is normal size. There is borderline concentric left ventricular hypertrophy. The left ventricular function is normal. The left ventricular ejection fraction is within the normal range. There is normal LV segmental wall motion. Transmitral Doppler flow pattern is Grade I-abnormal relaxation pattern. RIGHT VENTRICLE The right ventricle is normal size. There is normal right ventricular wall thickness. The right ventricular systolic function is normal. ATRIA The left atrium is borderline dilated. The right atrium size is normal. AORTIC VALVE The aortic valve is normal in structure. No aortic regurgitation is present. There is no aortic valvular stenosis. MITRAL VALVE The mitral valve is normal in structure. Mitral regurgitation is trace. TRICUSPID VALVE There is mild pulmonary hypertension. GREAT VESSELS The aortic root is normal in size. PERICARDIAL EFFUSION There is no pericardial effusion. <Conclusion> The left ventricle is normal size. There is borderline concentric left ventricular hypertrophy. The left ventricular function is normal. The left ventricular ejection fraction is within the normal range. There is normal LV segmental wall motion. Transmitral Doppler flow pattern is Grade I-abnormal relaxation pattern. There is mild pulmonary hypertension.
--- NOTE | 2017-12-12 10:06 | DS ---
I saw her resting comfortably in bed. She is walking around the halls, the nurse is telling me. She is feeling better. No chest pain or shortness of breath. No dizziness. No headache. She came in with the seizure, history of not taking her medication. She is back on her medications. PHYSICAL EXAMINATION VITAL SIGNS: She has 98.1 temperature, 60 pulse. I put her on amlodipine for high blood pressure, now it is 137/80. Respiratory rate 20, 96% O2 saturation on room air. HEAD: Atraumatic and normocephalic. HEART: Regular rate. LUNGS: Clear to auscultation. ABDOMEN: Soft. EXTREMITIES: Have no edema. NEUROLOGIC: She is smiling. She is eating. She is walking around. She is pleasant. LABORATORY DATA: She has an 8.4 white count, 12.7 hemoglobin, 39.4 hematocrit, 241,000 platelets. She has 144 sodium, potassium 3.6, BUN 13, creatinine 1.1, GFR is 52, sugar is 90, calcium is 10, total bilirubin is 0.8, AST is 25, ALT is 30, alkaline phosphatase is 83, total protein is 6.5. Troponin I was 0.04, TSH is 4.01. Negative for the flu. She was seen by toll gate tender, states she is doing well and can go home. She was seen by Cardiology whose impression was seizure, syncope, hypertension, borderline diabetes, indeterminate troponin elevation. He was happy with her, he ordered an echo, which was done, do not know the results. Was seen by Neurology, was asking for an EEG, it was not ordered, I ordered it, waiting for the results she will be discharged later on today. She will go home on her Epogen one daily; her Keppra, which was stopped and amlodipine for her hypertension. She will be seen in the office in a week of the primary care doctor and hopefully, she will do well. She is here for seizure, noncompliance with the medication, hypertension, and syncope. Ángel Da Silva DO MTDSharon
== END 2017-12-11 14:15 | disposition home or self-care (01) ==
LOC: ED 22:58 → INTOOBSV 12-10 02:09 → ERH 12-10 02:09 → 2RSO 12-10 05:29
PROVIDERS: ADMIT Family Medicine; ATTEND Family Medicine
DX: I95.1 Orthostatic hypotension (principal); Z72.820 Sleep deprivation; E86.0 Dehydration; J18.9 Pneumonia, unspecified organism; R73.03 Prediabetes; I10 Essential (primary) hypertension; H05.20 Unspecified exophthalmos; G40.909 Epilepsy, unspecified, not intractable, without status epilepticus; E03.9 Hypothyroidism, unspecified; Z90.710 Acquired absence of both cervix and uterus; R40.2412 Glasgow coma scale score 13-15, at arrival to emergency department; Z91.14 Patient's other noncompliance with medication regimen; R00.1 Bradycardia, unspecified
CPT/HCPCS: 36415; 70450; 70553; 71045; 71046; 80053; 82550; 82553; 83615; 83735; 84443; 84484; 85025; 85027; 85610; 85730; 87040; 87804; 93005; 93306; 93880; 95812; 96365; 99285; A9579; G0378